=== PATIENT | male | born 1960 | race Asian ===

== ENCOUNTER 2017-10-15 22:47 | Emergency (ER) | payer BC ==
[~2017-10-15] VITALS: Ht 177.8 cm; Wt 81.6 kg
[2017-10-15 23:07] VITALS: Ht 177.8 cm; Wt 81.6 kg
[2017-10-16 00:13] LABS: BASOPHIL % 0.5 % (0-2); PLATELET COUNT 260 x10^3mcL (130-400); RED CELL DISTRIBUTION WIDTH 13.5 % (11.5-14.5)
[2017-10-16 00:26] LABS: CALCIUM 9.5 mg/dL (8.5-10.1); CARBON DIOXIDE 28.4 mmol/L (21-32); CHLORIDE SERUM 107 mmol/L (98-107); CREATININE SERUM 0.9 mg/dL (0.7-1.3); GFR1 > 60 mL/min; GLUCOSE SERUM 78 mg/dL (74-106); POTASSIUM SERUM 3.8 mmol/L (3.5-5.1); SODIUM SERUM 143 mmol/L (136-145)
[2017-10-16 00:33] LABS: ALBUMIN 3.6 g/dL (3.4-5.0); ALKALINE PHOSPHATASE 74 U/L (46-116); ALT/SGPT 58 U/L (16-63); AST/SGOT 24 U/L (15-37); BILIRUBIN TOTAL 0.5 mg/dL (0.20-1.00); CHOLESTEROL 176 mg/dL (<200); CHOLESTEROL/HDL RATIO 4.5; HDL CHOLESTEROL 39 mg/dL (40-60); LIPASE 168 IU/L (73-393); TOTAL PROTEIN, SERUM 7.6 g/dL (6.4-8.2); TRIGLYCERIDES 149 mg/dL (<150)
[2017-10-16 01:00] LABS: FREE THYROXINE INDEX 2.5 ug/dL (1.4-4.5); T4(THYROXINE) 7.2 ug/dL (4.7-13.3)
[2017-10-16 01:41] VITALS: BP 136/74
[2017-10-16 01:57] LABS: T3 TOTAL 1.21 ng/mL
[2017-10-16 02:01] LABS: microscopic required? NO
[2017-10-16 02:48] LABS: UA SPECIFIC GRAVITY >=1.030 (1.005-1.035); urine erythrocyte NEGATIVE (NEGATIVE)
== END 2017-10-16 01:41 | disposition home or self-care (01) ==
LOC: ED 22:47
PROVIDERS: Specialist
DX: K29.70 Gastritis, unspecified, without bleeding (principal); K80.50 Calculus of bile duct without cholangitis or cholecystitis without obstruction
CPT/HCPCS: 36415; 83880; 84439; J7030; Q0092

== ENCOUNTER 2018-01-21 18:53 | Emergency (ER) | payer BC ==
[~2018-01-21] VITALS: Ht 177.8 cm; Wt 81.2 kg
[2018-01-21 19:05] VITALS: Ht 177.8 cm; Wt 81.2 kg
[2018-01-21 20:46] VITALS: BP 125/86
== END 2018-01-21 20:46 | disposition home or self-care (01) ==
LOC: ED 18:53
DX: M54.12 Radiculopathy, cervical region (principal)
CPT/HCPCS: J1885

== ENCOUNTER 2018-04-22 09:20 | Emergency (ER) | payer BC ==
[~2018-04-22] VITALS: Ht 177.8 cm; Wt 81.2 kg
[2018-04-22 09:23] VITALS: Ht 177.8 cm; Wt 81.2 kg
[2018-04-22 10:52] VITALS: BP 128/85
== END 2018-04-22 10:52 | disposition home or self-care (01) ==
LOC: ED 09:20
DX: K64.4 Residual hemorrhoidal skin tags (principal); K62.89 Other specified diseases of anus and rectum; J45.909 Unspecified asthma, uncomplicated

== ENCOUNTER 2018-06-19 05:13 | Emergency (ER) | payer BC ==
[~2018-06-19] VITALS: Ht 177.8 cm; Wt 82.1 kg
[2018-06-19 05:16] VITALS: Ht 177.8 cm; Wt 82.1 kg
[2018-06-19 07:31] VITALS: BP 114/67
== END 2018-06-19 07:31 | disposition home or self-care (01) ==
LOC: ED 05:13
DX: J06.9 Acute upper respiratory infection, unspecified (principal); J45.909 Unspecified asthma, uncomplicated